=== PATIENT | female | born 1995 | race Caucasian/White ===

== ENCOUNTER 2017-10-03 11:50 | Emergency (ER) | END 2017-10-03 12:01 | disposition home or self-care (01) ==

== ENCOUNTER 2018-03-28 19:42 | Emergency (ER) | END 2018-03-28 21:19 | disposition home or self-care (01) ==

== ENCOUNTER 2018-06-12 11:15 | Emergency (ER) | payer BC ==
[~2018-06-12] VITALS: Ht 160 cm; Wt 63.6 kg
[~2018-06-12 11:15] MED LIST: AZIT250T PO; BEN25 PO; BENZ-6 PO; FLUT9.9S NASAL; IBUP-1542 PO; LORA10CA PO
[2018-06-12 11:18] VITALS: BP 119/57; PULSE 80; RESP 18; Ht 160 cm; Wt 63.6 kg
[2018-06-12] MEDS ORDERED: AZIT250T PO (11:30)
[2018-06-12] MEDS ORDERED: IBUP-1542 PO (11:30)
[2018-06-12] MEDS ORDERED: D-ME473S2 PO (11:30)
--- NOTE | 2018-06-12 11:34 | ERD ---
ER Documentation Chief Complaint Chief Complaint cough , runny nose , chest congestion x 4 days HPI 23-year-old female presents with congestion, productive cough worsening over the last 4 days. She denies any current fevers. She denies chest pain, vomiting, abdominal pain, urinary complaints, additional symptoms. Denies hemoptysis. ROS All systems reviewed and are negative except as per history of present illness. Medications Home Meds Active Scripts Ibuprofen* (Motrin*) 600 Mg Tab, 600 MG PO Q6, #15 TAB Prov:ABRAM VALLEJO MD 06/12/18 Dextromethorphan Hb-Promethazine Hcl* (Promethazine DM* Syrup) 473 Ml Syrup, 5 ML PO Q6 PRN for COUGH for 5 Days, ML Prov:ABRAM VALLEJO MD 06/12/18 Azithromycin* (Zithromax*) 250 Mg Tablet, 250 MG PO .ZPACK DIRECTED, #6 TAB TAKE 500 MG (2 TABS) THE FIRST DAY THEN 250 MG (1 TAB) DAYS 2-5 Prov:ABRAM VALLEJO MD 06/12/18 Loratadine* (Claritin*) 10 Mg Capsule, 10 MG PO DAILY, #30 CAP Prov:LESLIE BARRIENTOS PA-C 03/28/18 Ibuprofen* (Motrin*) 600 Mg Tab, 600 MG PO Q6, #30 TAB Prov:LESLIE BARRIENTOS PA-C 03/28/18 Fluticasone Propionate (Flonase Allergy Relief) 9.9 Ml [place].susp, 1 SPRAY NASAL BID, #1 BOTTLE TO EACH NOSTRIL Prov:LESLIE BARRIENTOS PA-C 03/28/18 Azithromycin* (Zithromax*) 250 Mg Tablet, 250 MG PO .ZPACK DIRECTED, #6 TAB TAKE 500 MG (2 TABS) THE FIRST DAY THEN 250 MG (1 TAB) DAYS 2-5 Prov:HELLEN DUBON PA-C 10/03/17 Benzonatate* (Tessalon Perle*) 100 Mg Capsule, 100 MG PO Q8H PRN for COUGH, #20 CAP Prov:HELLEN DUBON PA-C 10/03/17 Diphenhydramine Hcl* (Benadryl*) 25 Mg Cap, 25 MG PO Q6, #30 CAP Prov:YURIY,JISSILLE PA-C 01/02/17 Allergies Allergies: Coded Allergies: No Known Allergy (Unverified , 10/03/17) PMhx/Soc Hx Alcohol Use: No Hx Substance Use: No Hx Tobacco Use: No FmHx Family History: No diabetes, No coronary disease, No other Physical Exam Vitals Vital Signs Date Temp Pulse Resp B/P (MAP) Pulse Ox O2 O2 Flow FiO2 Time Delivery Rate 06/12/18 98.7 80 18 119/57 99 11:18 (77) Physical Exam Const: No acute distress Head: Atraumatic Eyes: Normal Conjunctiva ENT: Normal External Ears, Nose and Mouth. TMs and oropharynx normal. Neck: Full range of motion. No meningismus. Resp: Clear to auscultation bilaterally. Rhonchi without rales, wheezing or retractions. Cardio: Regular rate and rhythm, no murmurs Abd: Soft, non tender, non distended. Normal bowel sounds Skin: No petechiae or rashes Back: No midline or flank tenderness Ext: No cyanosis, or edema Neur: Awake and alert Psych: Normal Mood and Affect Procedures/MDM Patient presents with worsening productive cough for the last 4 days. She has no evidence of hypoxemia, rest or distress or signs of pneumonia. We will treat empirically for atypicals with Zithromax, promethazine, ibuprofen, primary care follow-up and return precautions. The patient was stable with no new complaints during the ER course. Clinically, there is no current evidence to suggest meningitis, sepsis, acute abdomen, pneumonia, stroke, acute coronary syndrome, pulmonary embolism, aortic dissection or any other emergent condition appearing to require further evaluation or hospitalization. Patient counseled regarding my diagnostic impression and care plan. Prior to discharge all questions answered. Pt agrees with treatment plan and understands strict return precautions. Pt is instructed to follow up with primary care provider within 24- 48 hours. Precautionary instructions provided including instructions to return to the ER if not improving or for any worsening or changing symptoms or c oncerns. Departure Diagnosis: Primary Impression: Upper respiratory infection URI type: unspecified URI Qualified Codes: J06.9 - Acute upper respiratory infection, unspecified Condition: Stable Patient Instructions: Bronchitis, Antiobiotic Treatment (Adult) Referrals: DOCTOR,NOT ON STAFF (PCP) Additional Instructions: Recheck for new or worsening symptoms with primary care doctor. TEEHEE,ABRAM N. MD Jun 12, 2018 11:34
== END 2018-06-12 11:49 | disposition home or self-care (01) ==
LOC: FTE 11:15
DX: J06.9 Acute upper respiratory infection, unspecified (principal)
CPT/HCPCS: 99283